=== PATIENT | male | born 1950 | race Caucasian/White ===

== ENCOUNTER 2017-12-15 05:46 | Day surgery (SDC) | payer MEDICARE, BC ==
[~2017-12-15] VITALS: Ht 177.8 cm; Wt 137.9 kg
[~2017-12-15 05:46] MED LIST: ADVAIR IH; ALLOPURINOL300 MG PO; ASPIRIN 81M81 MG/TA2 PO; AVALIDE PO; BENICAR40 MG PO; BYSTOLIC10 MG PO; CETIRIZINE; COLCHICINE0.5 MG PO; EPA/GLA1 SGL PO; FISH OIL1000 MG PO; GLUCOPHAGE500 MG/TAB PO; HCTZ 25MG TAB25 MG PO; INDOCIN50 MG PO; PRILOSEC 20MG20 MG PO; PROVENTIL0.09 MG/A1 IH; RELAFEN; SINGULAIR; VALTURNA 300 MG1 TAB PO; ZOCOR; ZOCOR 80MG80 MG PO; ZOCOR80 MG PO; ZYRTEC 10MG10 MG PO
[2017-12-15] MEDS ORDERED: GLUCOPHAGE500 MG/TAB PO (06:18)
[2017-12-15] MEDS ORDERED: LASIX 20MG TABL20 MG PO (06:18)
[2017-12-15] MEDS ORDERED: TOPROL XL100 MG PO (06:18)
[2017-12-15] MEDS ORDERED: ZOCOR 80MG80 MG PO (06:19)
[2017-12-15] MEDS ORDERED: ZYLOPRIM 300MG300 MG PO (06:19)
[2017-12-15] MEDS ORDERED: PRILOSEC 20MG20 MG PO (06:20)
[2017-12-15] MEDS ORDERED: DIOVAN320 MG PO (06:20)
[2017-12-15] MEDS ORDERED: CATAPRES0.2 MG PO (06:21)
[2017-12-15] MEDS ORDERED: ALDACTONE 25MG25 M1 PO (06:21)
[2017-12-15] MEDS ORDERED: PROAIR HFA0.09 MG/AC IH (06:21)
[2017-12-15] MEDS ORDERED: SINGULAIR 110 MG/TAB PO (06:22)
[2017-12-15] MEDS ORDERED: ASPIRIN 81M81 MG/TA2 PO (06:22)
[2017-12-15] MEDS ORDERED: EPA FISH OIL1 SGL PO (06:22)
[2017-12-15] MEDS ORDERED: ZYRTEC 10MG10 MG PO (06:23)
[2017-12-15 06:25] VITALS: BP 181/86; PULSE 79; TEMP 98.6
[2017-12-15 07:48] VITALS: BP 171/81; PULSE 63; TEMP 99.3
[2017-12-15 08:05] VITALS: BP 174/90; PULSE 67
== END 2017-12-15 08:40 | disposition home or self-care (01) ==
LOC: SDCO 05:46
DX: Z12.11 Encounter for screening for malignant neoplasm of colon (principal); D12.5 Benign neoplasm of sigmoid colon; K57.30 Diverticulosis of large intestine without perforation or abscess without bleeding; I10 Essential (primary) hypertension; E78.00 Pure hypercholesterolemia, unspecified; E11.9 Type 2 diabetes mellitus without complications; J45.909 Unspecified asthma, uncomplicated; Z88.8 Allergy status to other drugs, medicaments and biological substances; Z86.010 Personal history of colon polyps
CPT/HCPCS: J2250; J3010; J7030